=== PATIENT | female | born 1985 | race Caucasian/White ===

== ENCOUNTER → 2018-08-09 | Outpatient (CLI) | payer OTHER | LOC: FIMAGING 13:00 | PROVIDERS: ATTEND Obstetrics & Gynecology | DX: Z36.9 Encounter for antenatal screening, unspecified (principal) ==

== ENCOUNTER 2018-11-29 09:23 | Observation (INO) | payer BC, OTHER ==
--- NOTE | 2018-11-29 09:51 | EDPHY ---
H & P Time Seen by Provider: 11/29/18 09:46 HPI/ROS: CHIEF COMPLAINT: Head injury with loss of consciousness HISTORY OF PRESENT ILLNESS: Patient is a 33-year-old female who is 35 weeks [address] Sony HESS phone number [phone] for head injury this morning. The patient reports that she was in the kitchen trying to put the plate away the top shelf when she lost grasp but the plate and she tried to catch it mid area slipped backwards and tripped over the washer door that was open and hit the back of her head and believes there was loss of consciousness. She has been nauseous since but has had no vomiting. She also reports neck pain. She denies any numbness or weakness in her arms. She takes no prescribed medication other than iron supplements for anemia . She denies any vaginal bleeding. Accordin to OB heart tones were normal in the office this morning. The reports that thinks there is right-sided facial droop which is new for her. Patient reports that she was feeling well this morning with no dizziness. She denies any drug or alcohol use. REVIEW OF SYSTEMS: Constitutional: No fever, no chills. Eyes: No discharge. ENT: No sore throat. Cardiovascular: No chest pain, no palpitations. Respiratory: No cough, no shortness of breath. Gastrointestinal: No abdominal pain, no vomiting. Genitourinary: No hematuria. Musculoskeletal: No back pain. Skin: No rashes. Neurological: + headache. Smoking Status: Never smoked Physical Exam: General Appearance: Alert and no distress. ENT: normal dentition. No tonsillar exudate or swelling. Eyes: Pupils equal and round no injection. Respiratory: Chest is nontender, lungs are clear to auscultation. Cardiac: regular rate and rhythm. No lower extremity edema Gastrointestinal: Abdomen is soft and nontender, no masses, bowel sounds normal. Musculoskeletal: Neck is supple and nontender. Extremities have full range of motion and are nontender without deformity Skin: No rashes or lesions. Neuro: Cranial nerves grossly intact with flattening of the right side of her smile. Horizontal nystagmus nystagmus. No ulnar drift. Equal grasp bilateral hands. Ambulatory. Constitutional: Initial Vital Signs Temperature (C) 36.6 C 11/29/18 09:29 Heart Rate 92 11/29/18 09:29 Respiratory Rate 16 11/29/18 09:29 Blood Pressure 116/83 H 11/29/18 09:29 O2 Sat (%) 99 11/29/18 09:29 O2 Delivery Mode Room Air Allergies/Adverse Reactions: shellfish derived Allergy (Verified 11/29/18 09:33) Home Medications: Medication Instructions Recorded Ferrous Sulfate [Ferrous Sulf 325 325 mg PO DAILY 11/29/18 MG (*)] Medical Decision Making - Diagnostics Imaging Results: Imaging Impressions Head CT 11/29/18 09:52 Impression: No acute intracranial process or cervical spine fracture/ subluxation. Findings and recommendations discussed with Luis Paris at 1048 hour , 11/29/2018. Cervical Spine CT 11/29/18 10:01 Impression: No acute intracranial process or cervical spine fracture/ subluxation. Findings and recommendations discussed with Luis Paris at 1048 hour , 11/29/2018. Brain MRI 11/29/18 12:34 Impression: Normal MRI of the brain without contrast. Results called to Luis Paris PA-C, at 2:30 PM. ED Course/Re-evaluation: 33-year-old female is 35 weeks sent here for evaluation of head injury. On Initial evaluation the patient is alert and oriented with no signs of skull fracture though she does have some slight flattening of the right feces which the reports is new. CT scan reveals no intracranial bleed or fracture. Labs are unremarkable and she has no abdominal tenderness on my exam. I she still had the right-sided facial flattening/weakness MRI was ordered which was completed in the ER. She was initially declining admission but after feeling monitoring was concerning in the emergency room she was transferred upstairs and admission was accepted by Dr. Oneal. MRI was resulted as normal and reviewed this with Kimmy. She was referred to Neurology for re-evaluation tomorrow or the next day. Differential Diagnosis: Carotid or vertebral artery dissection, cervical strain, intracranial bleed, concussion - Data Points Laboratory Results: Laboratory Results 11/29/18 10:25 11/29/18 10:28 11/29/18 11/29/18 10:28 10:25 WBC 11.72 10^3/uL H 10^3/uL (3.80-9.50) RBC 3.64 10^6/uL L 10^6/uL (4.18-5.33) Hgb 11.3 g/dL L g/dL (12.6-16.3) Hct 35.0 % L % (38.0-47.0) MCV 96.2 fL fL (81.5-99.8) MCH 31.0 pg pg (27.9-34.1) MCHC 32.3 g/dL L g/dL (32.4-36.7) RDW 12.4 % % (11.5-15.2) Plt Count 309 10^3/uL 10^3/uL (150-400) Sodium 136 mEq/L mEq/L (135-145) Potassium 4.0 mEq/L mEq/L (3.5-5.2) Chloride 108 mEq/L mEq/L (97-110) Carbon Dioxide 24 mEq/l mEq/l (22-31) Anion Gap 4 mEq/L L mEq/L (6-14) BUN 7 mg/dL mg/dL (7-23) Creatinine 0.6 mg/dL mg/dL (0.6-1.0) Estimated GFR > 60 Glucose 75 mg/dL mg/dL (70-100) Calcium 9.2 mg/dL mg/dL (8.5-10.4) Total Bilirubin 0.2 mg/dL mg/dL (0.1-1.4) AST 33 IU/L IU/L (14-46) ALT 36 IU/L IU/L (9-52) Alkaline Phosphatase 142 IU/L H IU/L (38-126) Total Protein 6.7 g/dL g/dL (6.3-8.2) Albumin 3.7 g/dL g/dL (3.5-5.0) Departure - Departure Disposition: [facility] Inpatient Acute Clinical Impression: Closed head injury with concussion, Non-reassuring electronic monitoring tracing Condition: Good
[2018-11-29 14:07] VITALS: BP 105/66
--- NOTE | 2018-11-29 14:58 | OBPROG ---
Labor Progress Note Assessment/Plan: Assessment: 33 yo G1 at 35w2d admitted to the floor from the ER - presented this morning after a mechanical fall in the kitchen and hitting her head on the ground fairly hard. Questionable LOC. Questionable if she was having new facial mm changes afterwards. Thinks she likely hit the side of her abdomen as she fell, but not clear. She has been having new mild tenderness on the left side of her abdomen since the incident, and rare menstrual cramps - but no contractions, no LOF, no bleeding. CT and MRI of the head both completely negative in the ER prior to admission to L&D. At this point we are 12 hours s/p incident with a reactive and reassuring FHR tracing. The patient is subjectively feeling good and completely back to baseline. I had a discussion with them regarding options of home tonight vs staying overnight for further observation. I counseled them that I do think its safe for them to discharge home with precautions - in that they need to call or present again MARINE if she has new s/sx of threatened PTL or any neurological changes. The ER did give them contact info for on-call Neurology to make an OP f/u appointment if needed. If she feels any new concerning or persistent sx she will make that appointment. L[facility]IS Subjective/Intrapartum Course: Usha is doing well here on the floor. She now reports that her face is feeling quite normal, no muscle weakness, smile is now "back to normal." For a time here on the floor she was describing menstrual cramps that were perhaps new - but those have since dissipated. No leaking, no bleeding. Lots of movement. Objective: Total Bilirubin 0.2 mg/dL (0.1-1.4) 11/29/18 10:28 AST 33 IU/L (14-46) 11/29/18 10:28 ALT 36 IU/L (9-52) 11/29/18 10:28 Temp Pulse Resp BP Pulse Ox 36.7 C 93 16 105/66 96 11/29/18 12:42 11/29/18 14:04 11/29/18 14:04 11/29/18 14:04 11/29/18 14:04 - Contraction Pattern Assessment Current Contraction Pattern: Irregular - FHR Assessment Arteaga FHR (bpm): 135 FHR Pattern Variability: Moderate FHR Category: 1 - Physical Exam General Appearance: WD/WN, alert, no apparent distress ICD10 Worksheet Patient Problems: Problems Problem Status Onset Closed head injury with concussion Acute Non-reassuring electronic monitoring tracing Acute
[2018-11-29] MEDS ORDERED: ACETAMINOPHEN 500 MG TAB PO ONE (16:15)
== END 2018-11-29 21:45 | disposition home or self-care (01) ==
LOC: FLD 14:25
PROVIDERS: ADMIT Obstetrics & Gynecology; ATTEND Obstetrics & Gynecology
DX: O9A.213 Injury, poisoning and certain other consequences of external causes complicating pregnancy, third trimester (principal); S06.0X0A Concussion without loss of consciousness, initial encounter; O36.8330 Maternal care for abnormalities of the fetal heart rate or rhythm, third trimester, not applicable or unspecified; W01.198A Fall on same level from slipping, tripping and stumbling with subsequent striking against other object, initial encounter; Y93.E9 Activity, other interior property and clothing maintenance; Y92.010 Kitchen of single-family (private) house as the place of occurrence of the external cause; R40.2412 Glasgow coma scale score 13-15, at arrival to emergency department; Z3A.35 35 weeks gestation of pregnancy
CPT/HCPCS: 59025; 70450; 70551; 72125; 99285; G0378